=== PATIENT | male | born 1960 | race Caucasian/White ===

== ENCOUNTER 2017-08-10 09:07 | Day surgery (SDC) | payer OTHER ==
[2017-08-10] MEDS ORDERED: PROPOFOL 20 ML ONE ×3 (10:03)
[2017-08-10 10:08] VITALS: BMI 31.8
[2017-08-10 11:12] VITALS: PULSE 61
[2017-08-10 15:30] VITALS: BP 117/71; TEMP 97.8
== END 2017-08-10 12:05 | disposition home or self-care (01) ==
LOC: JASU-ENDO 09:07
PROVIDERS: ATTEND Internal Medicine Gastroenterology
PROC: 0DJD8ZZ Inspection of Lower Intestinal Tract, Via Natural or Artificial Opening Endoscopic (ICD-10-PCS; principal; 2017-08-10 09:45)
DX: Z12.11 Encounter for screening for malignant neoplasm of colon (principal); K64.8 Other hemorrhoids

== ENCOUNTER 2017-08-17 08:41 | Day surgery (SDC) | payer OTHER ==
[2017-08-17 09:09] VITALS: BMI 31.8
[2017-08-17] MEDS ORDERED: LIDOCAINE HCL/PF 2% SDV 5ML VIAL ONE (09:35)
[2017-08-17] MEDS ORDERED: PROPOFOL 20 ML ONE (09:35)
[2017-08-17 10:06] VITALS: TEMP 98
[2017-08-17 10:56] VITALS: BP 112/77; PULSE 66
--- NOTE | 2017-08-19 09:31 | PATH ---
Surgical Pathology Report Patient Name: CHET AGUILERA [facility]. Rec. #: [id number] /Age/Gender: 1960 (Age: 57) / M Account: [id number] Location: [facility]-ENDOSCOPY Taken: 08/17/2017 Received: 08/17/2017 Reported: 08/19/2017 Physicians: Darek Scott D.O. Specimen(s) Received A: BX CARDIA ULCER B: BX ANGULARIS BODY C: BX ESOPHAGUS POLYP Clinical History Family history of digestive neoplasm Postoperative diagnosis: Gastric ulcer polyp, esophageal polyps Final Diagnosis A. CARDIAL ULCER, BIOPSY: GASTRIC MUCOSA WITH ULCERATION, FIBRINOUS AND ACUTE INFLAMMATORY EXUDATE. SEPARATE FRAGMENTS OF GASTRIC MUCOSA WITH CHRONIC GASTRITIS. IMMUNOSTAIN IS NEGATIVE FOR H. PYLORI ORGANISMS. B. GASTRIC ANGULARIS BODY, BIOPSY: GASTRIC MUCOSA WITH NO DIAGNOSTIC ABNORMALITIES. IMMUNOSTAIN IS NEGATIVE FOR H. PYLORI ORGANISMS. C. ESOPHAGUS POLYP, BIOPSY: ESOPHAGEAL (SQUAMOUS) MUCOSA SHOWING EPITHELIAL HYPERPLASIA WITH ABUNDANT INTRACELLULAR GLYCOGEN (CLEARED CYTOPLASM), CONSISTENT WITH GLYCOGENIC ACANTHOSIS. Electronically Signed Rosenda Catalan M.D. Gross Description A. Received in formalin, labeled "biopsy cardia ulcer" are 4 alegria, irregular portions of soft tissue ranging from 0.2-0.3 cm. in greatest dimension. The specimens are submitted in toto in one cassette. B. Received in formalin, labeled "biopsy angularis/body" are 5 alegria, irregular portions of soft tissue ranging from 0.2-0.4 cm. in greatest dimension. The specimens are submitted in toto in one cassette. C. Received in formalin, labeled "biopsy esophageal polyp" are 2 alegria, irregular portions of soft tissue measuring 0.1 and 0.2 cm. in greatest dimension. The specimens are submitted in toto in one cassette. /08/17/2017 saudi08/17/2017
== END 2017-08-17 11:10 | disposition home or self-care (01) ==
LOC: JASU-ENDO 08:41
PROVIDERS: ATTEND Internal Medicine Gastroenterology
PROC: 0DB68ZX Excision of Stomach, Via Natural or Artificial Opening Endoscopic, Diagnostic (ICD-10-PCS; 2017-08-17)
PROC: 0DB18ZX Excision of Upper Esophagus, Via Natural or Artificial Opening Endoscopic, Diagnostic (ICD-10-PCS; principal; 2017-08-17 09:45)
DX: Z80.0 Family history of malignant neoplasm of digestive organs (principal); K25.9 Gastric ulcer, unspecified as acute or chronic, without hemorrhage or perforation
CPT/HCPCS: 88305-TC; 88342-TC

== ENCOUNTER 2017-09-17 07:47 | Observation (INO) | payer OTHER ==
[2017-09-17 08:11] VITALS: BMI 31.4
--- NOTE | 2017-09-17 08:15 | PDOC ---
History of Present Illness - General Chief Complaint: Edema Stated Complaint: RT ARM SWELLING Time Seen by Provider: 09/17/17 08:14 - History of Present Illness Initial Comments: 09/17/17 08:52 The patient is a 57 year old male with no significant PMH who presents for evaluation of right elbow swelling and pain. The patient reports that he noted right elbow swelling 2 days ago and over the past 24 hours has been experiencing increasingly worsening right elbow pain with limited ROM prompting his presentation to the ED for evaluation. He otherwise denies fevers, chills, SOB, chest pain, nausea, vomiting, abdominal pain, numbness, tingling, weakness , or changes with urination or bowel movements. Past History - Past Medical History Allergies/Adverse Reactions: Allergies Allergy/AdvReac Type Severity Reaction Status Date / Time peanut [Peanut] Allergy Verified 09/17/17 08:02 Home Medications: Ambulatory Orders Pantoprazole Sodium [Protonix -] 40 mg PO DAILY #30 tablet.ec 08/17/17 Anemia: No Asthma: No Cancer: No Cardiac Disorders: No CVA: No COPD: No CHF: No Dementia: No Diabetes: No GI Disorders: Yes (DIVERTICULOSIS) Disorders: No HTN: No Hypercholesterolemia: No Liver Disease: No Seizures: No Thyroid Disease: No - Immunization History Immunization Up to Date: Yes - Suicide/Smoking/Psychosocial Hx Smoking History: Never smoked Hx Alcohol Use: No Drug/Substance Use Hx: No Substance Use Type: None Hx Substance Use Treatment: No Review of Systems - Review of Systems Comments:: 09/17/17 08:54 Constitutional: No fevers, chills, fatigue, malaise HEENT: No Rhinorrhea, nasal congestion, visual changes Cardiovascular: No chest pain, syncope, palpitations, lightheadedness Respiratory: No Cough, SOB, Hemoptysis, Gastrointestinal: No Abdominal pain, Nausea, Vomiting, Constipation, Diarrhea, Melena Genitourinary: No Dysuria, Frequency, Urgency, Hesitancy, Hematuria, Flank pain Musculoskeletal: Right elbow pain. No Myalgia, arthralgia Skin: No rashes, itching, bruising, pallor Neurologic: No Headache, Dizziness, Numbness, Weakness, or Tingling Psychiatric: No Hallucinations. No SI or HI *Physical Exam - Vital Signs Last Vital Signs Temp Pulse Resp BP Pulse Ox 98.1 F 78 18 133/82 98 09/17/17 08:02 09/17/17 08:02 09/17/17 08:02 09/17/17 08:02 09/17/17 08:02 - Physical Exam Comments: 09/17/17 08:55 General Appearance: Nourished. No Apparent Distress HEENT: EOMI, GI. No Pharyngeal Erythema, Tonsillar Exudate, Tonsillar Erythema Neck: No Cervical Lymphadenopathy Respiratory/Chest: Lungs Clear, Normal Breath Sounds. No Crackles, Rales, Rhonchi, Wheezing Cardiovascular: Regular Rhythm, Regular Rate. No Murmur, Gallops, Rubs Gastrointestinal/Abdominal: Normal Bowel Sounds, Soft. No Guarding, Rebound, Tenderness Musculoskeletal: No CVA Tenderness Extremity: Mild erythema and swelling to the right elbow with limited ROM due to pain and warmth noted on exam. Normal Capillary Refill Integumentary: Normal Color, Dry, Warm Neurologic: Fully Oriented, Alert, Normal Mood/Affect, Normal Response, ED Treatment Course - LABORATORY CBC & Chemistry Diagram: 09/17/17 08:55 09/17/17 08:55 Medical Decision Making - Medical Decision Making 09/17/17 08:56 The patient is a 57 year old male with no significant PMH who presents for evaluation of right elbow swelling and pain. Differential includes but is not limited to: Septic Arthritis, Gout, Fracture, infectious, metabolic derangement. Given the patient's history and physical exam, we will obtain a cbc, cmp, esr, crp, uric acid, plain films, and ultrasound of the joint to evaluate further for possible etiologies. We will continue to monitor and reassess in the meantime. 09/17/17 11:39 CBC,cmp, uric acid are unremarkable. CRP is mildly elevated to 1.9. Plain films are unremarkable as read by our radiologist. US is unremarkable as well. We discussed the case with Dr. Victor who will come evaluate the patient given the concern for a septic arthritis and he requests that we begin antibiotic treatment in the meantime as he believes that patient's symptoms are likely due to a cellulitis. The patient will require admission for further management. 09/17/17 11:46 We discussed the case with the hospitalist team who accepted the patient for admission. *DC/Admit/Observation/Transfer Diagnosis at time of Disposition: Cellulitis Qualifiers: Site of cellulitis: unspecified site Qualified Code(s): L03.90 - Cellulitis, unspecified Septic arthritis Qualifiers: Septic arthritis location: unspecified location Septic arthritis organism: due to unspecified organism Qualified Code(s): M00.9 - Pyogenic arthritis, unspecified - Discharge Dispostion Condition at time of disposition: Stable Decision to Admit order: Yes - Referrals Referrals: Terry Livingston MD [Primary Care Provider] - - Patient Instructions - Post Discharge Activity
--- NOTE | 2017-09-17 08:27 | PDOC ---
Attending Attestation - HPI HPI: 09/17/17 09:09 The patient is a 57 year old male with no significant past medical history who presents to the emergency department for evaluation of right elbow pain. The patient reports moderate right elbow pain with swelling and redness since yesterday evening. He reports waking up with significantly limited range of motion with his right elbow today which prompted him to visit the emergency department for evaluation. The patient notes swelling and tightness occurred Wednesday after receiving a cut on his right upper arm from doing garden work on Wednesday. The patient denies history of gout, chest pain, shortness of breath, numbness/ tingling in extremities, headache, fevers, chills, nausea, vomiting, . Denies diarrhea, constipation, dysuria, frequency, urgency, and hematuria. Allergies: Peanut. Social history: No reported cigarette, alcohol, or drug use. PCP: Dr. Livingston ([phone]) <Callie Tidwell - Last Filed: 09/17/17 09:08> - Resident Resident Name: Anjel Adames - ED Attending Attestation I have performed the following: I have examined & evaluated the patient, The case was reviewed & discussed with the resident, I agree w/resident's findings & plan, Exceptions are as noted - Physicial Exam PE: GENERAL: Awake, alert, and fully oriented, in no acute distress HEAD: No signs of trauma EYES: PERRLA, EOMI, sclera anicteric, conjunctiva clear ENT: Auricles normal inspection, hearing grossly normal, nares patent, oropharynx clear without exudates. Moist mucosa NECK: Normal ROM, supple, no lymphadenopathy, JVD, or masses LUNGS: Breath sounds equal, clear to auscultation bilaterally. No wheezes, and no crackles HEART: Regular rate and rhythm, normal S1 and S2, no murmurs, rubs or gallops ABDOMEN: Soft, nontender, normoactive bowel sounds. No guarding, no rebound. No masses EXTREMITIES: R elbow with dec ROM due to pain. +Swelling and erythema overlying the elbow joint, dorsal surface. No induration, fluctuance. +Tenderness to the dorsal surface of elbow joint. Distal N/V intact. Remainder of extremities with normal range of motion, no edema. No clubbing or cyanosis. No cords, erythema, or tenderness NEUROLOGICAL: Cranial nerves II through XII grossly intact. Normal speech, normal gait. Motor and sensation intact. SKIN: Warm, Dry, normal turgor, no rashes or lesions noted. - Medical Decision Making 09/17/17 09:09 Pt with R elbow swelling. DDx includes septic joint, cellulitis, gout, bursitis. Will obtain labs including ESR/CRP, BCx. Sono, XR. Ortho consult. <Joana Ramirez - Last Filed: 09/17/17 09:12> Attestations - Attestations Documentation prepared by Callie Tidwell, acting as medical biller coder for Joana Ramirez MD. <Callie Tidwell - Last Filed: 09/17/17 09:08>
[2017-09-17] MEDS ORDERED: DIPHTH,PERTUSS(ACELL),TET 0.5 ML DISP.SYRIN IM ONE (08:47)
[2017-09-17] MEDS ORDERED: ACETAMINOPHEN 1000 MG/100 ML VIAL (NON FORMULARY) IVPB ONE (09:00)
[2017-09-17 09:14] LABS: BASO % 0.5 % (0-2.0); EOS % 1.2 % (0-4.5); HEMATOCRIT 42.8 % (35.4-49); HEMOGLOBIN 14.3 GM/dL (11.7-16.9); LYMPH % 24.7 % (8-40); MCH 27.1 pg (25.7-33.7); MCHC 33.3 g/dl (32.0-35.9); MEAN CELL VOLUME 81.2 fl (80-96); MONO % 8.5 % (3.8-10.2); NEUT % 65.1 % (42.8-82.8); PLATELET COUNT 226 K/MM3 (134-434); RBC 5.27 M/mm3 (4.00-5.60); RDW 13.8 % (11.9-15.9); WHITE BLOOD COUNT 7.9 K/mm3 (4.0-10.0)
[2017-09-17] MEDS ORDERED: ACETAMINOPHEN INJECTION 100 ML IVPB ONE (09:16)
[2017-09-17 09:34] LABS: URIC ACID 4.6 mg/dL (2.6-7.2)
[2017-09-17 09:35] LABS: ALBUMIN 3.6 g/dl (3.4-5.0); ANION GAP 6 (8-16); BLOOD UREA NITROGEN 13 mg/dL (7-18); CALCIUM 8.8 mg/dL (8.5-10.1); CHLORIDE 106 mmol/L (98-107); CO2 29 mmol/L (21-32); CREATININE 1.1 mg/dL (0.7-1.3); GLUCOSE,RANDOM 88 mg/dL (74-106); POTASSIUM 3.9 mmol/L (3.5-5.1); SGOT/AST 23 U/L (15-37); SGPT/ALT 34 U/L (12-78); SODIUM 141 mmol/L (136-145)
[2017-09-17 09:36] LABS: ALK PHOS 48 U/L (45-117); BILIRUBIN,TOTAL 1.5 mg/dL (0.2-1.0); TOT PROT 7.2 g/dl (6.4-8.2)
[2017-09-17] MEDS ORDERED: CEFTRIAXONE 1 GM in DEXTROSE 5%-WATER - 100 ML IVPB ONE (11:31)
[2017-09-17] MEDS ORDERED: VANCOMYCIN 1,250 MG in DEXTROSE 5%-WATER - 250 ML IVPB ONE (11:31)
[2017-09-17] MEDS ORDERED: CEFTRIAXONE 1 GM/50 ML BAG ONE (12:01)
--- NOTE | 2017-09-17 13:15 | HP ---
CHIEF COMPLAINT: R elbow pain PCP:Chrissy HISTORY OF PRESENT ILLNESS: 57yo M with no PMH presented to the ER with R elbow pain and swelling that started on Wednesday. stated he was doing yard work the day before and thinks he scratched his arm on the ladder. on wednesday noted he was having some pain in the elbow and then difficulty bending it due to the pain. noted at bedtime some redness. pain has improved since arrival to the ER. no previous episodes in the past. was recently started on protonix for gastric ulcer. denies CP, SOB , fever, chills, N/V/C/D ER course was notable for: (1)elbow XR no joint effusion (2)vascular study no RUE DVT (3) Recent Travel:none PAST MEDICAL HISTORY: nonbleeding gastric ulcer PAST SURGICAL HISTORY: none Social History: Smoking:denies Alcohol:denies Drugs: denies Family History:father: gastric cancer Allergies peanut [Peanut] Allergy (Verified 09/17/17 08:02) HOME MEDICATIONS: Home Medications Medication Instructions Recorded Pantoprazole Sodium [Protonix -] 40 mg PO DAILY #30 tablet.ec 08/17/17 REVIEW OF SYSTEMS CONSTITUTIONAL: Absent: fever, chills, diaphoresis, generalized weakness, malaise, loss of appetite, weight change HEENT: Absent: rhinorrhea, nasal congestion, throat pain, throat swelling, difficulty swallowing, mouth swelling, ear pain, eye pain, visual changes CARDIOVASCULAR: Absent: chest pain, syncope, palpitations, irregular heart rate, lightheadedness , peripheral edema RESPIRATORY: Absent: cough, shortness of breath, dyspnea with exertion, orthopnea, wheezing, stridor, hemoptysis GASTROINTESTINAL: Absent: abdominal pain, abdominal distension, nausea, vomiting, diarrhea, constipation, melena, hematochezia GENITOURINARY: Absent: dysuria, frequency, urgency, hesitancy, hematuria, flank pain, genital pain MUSCULOSKELETAL: arthralgia, joint swelling, Absent: myalgia, back pain, neck pain SKIN: Absent: rash, itching, pallor HEMATOLOGIC/IMMUNOLOGIC: Absent: easy bleeding, easy bruising, lymphadenopathy, frequent infections ENDOCRINE: Absent: unexplained weight gain, unexplained weight loss, heat intolerance, cold intolerance NEUROLOGIC: Absent: headache, focal weakness or paresthesias, dizziness, unsteady gait, seizure, mental status changes, bladder or bowel incontinence PSYCHIATRIC: Absent: anxiety, depression, suicidal or homicidal ideation, hallucinations. PHYSICAL EXAMINATION Vital Signs - 24 hr 09/17/17 08:02 Temperature 98.1 F Pulse Rate 78 Respiratory 18 Rate Blood Pressure 133/82 O2 Sat by Pulse 98 Oximetry (%) GENERAL: Awake, alert, and fully oriented, in no acute distress. HEAD: Normal with no signs of trauma. EYES: Pupils equal, round and reactive to light, extraocular movements intact, sclera anicteric, conjunctiva clear. No lid lag. EARS, NOSE, THROAT: Ears normal, nares patent, oropharynx clear without exudates. Moist mucous membranes. NECK: Normal range of motion, supple without lymphadenopathy, JVD, or masses. LUNGS: Breath sounds equal, clear to auscultation bilaterally. No wheezes, and no crackles. No accessory muscle use. HEART: Regular rate and rhythm, normal S1 and S2 without murmur, rub or gallop. ABDOMEN: Soft, nontender, not distended, normoactive bowel sounds, no guarding, no rebound, no masses. No hepatomegaly or splenomegaly. MUSCULOSKELETAL: restricted ROM of R elbow <15 degrees. erythema on lateral epicondyle. no joint swelling. pulse intact. Abrasion noted on RUE with no active oozing with some surrounding erythema. tenderness noted at lateral epicondyle. full ROM at the wrist and shoulder. pulse 2+. No CVA tenderness. UPPER EXTREMITIES: 2+ pulses, warm, well-perfused. No cyanosis. No clubbing. No peripheral edema. LOWER EXTREMITIES: 2+ pulses, warm, well-perfused. No calf tenderness. No peripheral edema. NEUROLOGICAL: Cranial nerves II-XII intact. Normal speech. Normal gait. PSYCHIATRIC: Cooperative. Good eye contact. Appropriate mood and affect. SKIN: Warm, dry, normal turgor, no rashes or lesions noted, normal capillary refill. Laboratory Results - last 24 hr 09/17/17 09/17/17 09/17/17 08:55 08:55 08:55 WBC 7.9 D RBC 5.27 Hgb 14.3 Hct 42.8 MCV 81.2 MCH 27.1 MCHC 33.3 RDW 13.8 Plt Count 226 MPV 8.0 Absolute Neuts (auto) 5.2 Neutrophils % 65.1 Lymphocytes % 24.7 Monocytes % 8.5 Eosinophils % 1.2 Basophils % 0.5 Nucleated RBC % 0 ESR Sodium 141 Potassium 3.9 Chloride 106 Carbon Dioxide 29 Anion Gap 6 L BUN 13 D Creatinine 1.1 Creat Clearance w eGFR > 60 Random Glucose 88 Uric Acid 4.6 Calcium 8.8 Total Bilirubin 1.5 H D AST 23 ALT 34 Alkaline Phosphatase 48 C-Reactive Protein 1.9 H Total Protein 7.2 Albumin 3.6 09/17/17 08:55 WBC RBC Hgb Hct MCV MCH MCHC RDW Plt Count MPV Absolute Neuts (auto) Neutrophils % Lymphocytes % Monocytes % Eosinophils % Basophils % Nucleated RBC % ESR 8 Sodium Potassium Chloride Carbon Dioxide Anion Gap BUN Creatinine Creat Clearance w eGFR Random Glucose Uric Acid Calcium Total Bilirubin AST ALT Alkaline Phosphatase C-Reactive Protein Total Protein Albumin ASSESSMENT/PLAN: 57yo M with PMH gastric ulcer presenting to the ER with R elbow pain and swelling 1. R elbow cellulitis- concern for septic arthritis but low given no effusion seen on XR. elevated CRP. awaiting Ortho evaluation. as per ER Resident ortho will come tonight and evaluate for arthrocentesis. will hold abx until evaluated as pt does not appear septic. will start vanco until results of joint aspiration is resulted. send for cx. f/u Bcx. continue tylenol prn pain 2. Gastric ulcer- bx negative per pt. cont protonix 3. DVT ppx- EAM Hospitalist Screening - Colonoscopy Questionnaire Colonoscopy Questionnaire: Colonoscopy Questionnaire
[2017-09-17] MEDS ORDERED: ACETAMINOPHEN 325 MG TABLET (FP) PO PRN (14:23)
--- NOTE | 2017-09-17 17:34 | CON.ORTH ---
Consult Consult Specialty:: orthopedics Referred by:: ER Reason for Consultation:: right elbow pain and swelling - History of Present Illness Chief Complaint: right elbow pain and swelling - History Source History Provided By: Patient, Medical Record Limitations to Obtaining History: No Limitations - Alcohol/Substance Use Hx Alcohol Use: No - Smoking History Smoking history: Never smoked Home Medications - Allergies Allergies/Adverse Reactions: Allergies Allergy/AdvReac Type Severity Reaction Status Date / Time peanut [Peanut] Allergy Verified 09/17/17 08:02 - Home Medications Home Medications: Ambulatory Orders Pantoprazole Sodium [Protonix -] 40 mg PO DAILY #30 tablet.ec 08/17/17 Review of Systems - Review of Systems Constitutional: reports: No Symptoms Eyes: reports: No Symptoms HENT: reports: No Symptoms Neck: reports: No Symptoms Cardiovascular: reports: No Symptoms Respiratory: reports: No Symptoms Gastrointestinal: reports: No Symptoms Genitourinary: reports: No Symptoms Physical Exam for Ortho Vital Signs: Vital Signs Temperature 98.3 F 09/17/17 14:00 Pulse Rate 65 09/17/17 14:00 Respiratory Rate 18 09/17/17 14:04 Blood Pressure 115/75 09/17/17 14:00 O2 Sat by Pulse Oximetry (%) 99 09/17/17 14:04 Constitutional: Yes: Well Nourished, No Distress, Calm Extremities: Yes: Other (RUE - there is mild erythema posteriorly over the olecranon. Mild tenderness and swelling. No fluctuance or palpable effusion. Mild limitation to ROM. Abrasion proximal to area of erythema. NVID) Labs: CBC, BMP 09/17/17 08:55 09/17/17 08:55 Imaging - Results X-ray: Report Reviewed, Image Reviewed Ultrasound: Report Reviewed (No fracture. No effusion. No soft tissue collection.) Problem List - Problems (1) Cellulitis of right elbow Assessment/Plan: -reviewed with patient that there is no current evidence of effusion or bursal collection or abscess -recommend continue treatment for cellulitis -can switch to PO if good clinical response -no need for aspiration or other intervention -please reconsult if condition worsens Code(s): L03.113 - CELLULITIS OF RIGHT UPPER LIMB
[2017-09-18 09:14] LABS: BASO % 0.9 % (0-2.0); EOS % 1.6 % (0-4.5); HEMATOCRIT 43.2 % (35.4-49); HEMOGLOBIN 14.4 GM/dL (11.7-16.9); LYMPH % 29.3 % (8-40); MCH 27.1 pg (25.7-33.7); MCHC 33.3 g/dl (32.0-35.9); MEAN CELL VOLUME 81.5 fl (80-96); MEAN PLT VOLUME 8.2 fl (7.5-11.1); MONO % 5.6 % (3.8-10.2); NEUT % 62.6 % (42.8-82.8); PLATELET COUNT 232 K/MM3 (134-434); RBC 5.29 M/mm3 (4.00-5.60); RDW 13.7 % (11.9-15.9); WHITE BLOOD COUNT 7.9 K/mm3 (4.0-10.0)
[2017-09-18] MEDS: PANTOPRAZOLE 40 MG TABLET (FP) PO SCH (09:15)
[2017-09-18 09:56] LABS: CHLORIDE 102 mmol/L (98-107); POTASSIUM 3.6 mmol/L (3.5-5.1); SODIUM 137 mmol/L (136-145)
[2017-09-18 10:12] LABS: ANION GAP 10 (8-16); BLOOD UREA NITROGEN 15 mg/dL (7-18); CO2 25 mmol/L (21-32); CREATININE 1.2 mg/dL (0.7-1.3); GLUCOSE,RANDOM 139 mg/dL (74-106)
--- NOTE | 2017-09-18 12:04 | PN ---
Physical Exam: SUBJECTIVE: Patient seen and examined at bedside. OBJECTIVE: Vital Signs Period Temp Pulse Resp BP Sys/Lal Pulse Ox Last 24 Hr 97.8 F-99 F 60-70 18-20 112-128/66-79 99-100 General: A&Ox3, in no acute distress Pulm: CTA CV: S1, S2, rrr RUE: abrasion right upper arm; right elbow mildly swollen, mildly edematous, ROM limited secondary to swelling; no fluctance Laboratory Results - last 24 hr 09/18/17 09/18/17 08:29 08:29 WBC 7.9 RBC 5.29 Hgb 14.4 Hct 43.2 MCV 81.5 MCH 27.1 MCHC 33.3 RDW 13.7 Plt Count 232 MPV 8.2 Absolute Neuts (auto) 5.0 Neutrophils % 62.6 Lymphocytes % 29.3 Monocytes % 5.6 Eosinophils % 1.6 Basophils % 0.9 Nucleated RBC % 0 Sodium 137 Potassium 3.6 Chloride 102 Carbon Dioxide 25 Anion Gap 10 BUN 15 Creatinine 1.2 Random Glucose 139 H D Calcium 9.0 Active Medications Generic Name Dose Route Start Last Admin Trade Name Freq PRN Reason Stop Dose Admin Acetaminophen 650 mg 09/17/17 14:23 Tylenol - PO Q4H PRN PAIN OR FEVER Pantoprazole Sodium 40 mg 09/18/17 10:00 09/18/17 09:15 Protonix - PO 40 mg DAILY WALI Administration ASSESSMENT/PLAN RUE cellulitis --swelling, mild erythema, restricted ROM secondary to swelling; abrasion right upper arm (scraped by ladder) --vanco x 1 --start doxy --ID consult Visit type - Emergency Visit Emergency Visit: Yes ED Registration Date: 09/17/17 Care time: The patient presented to the Emergency Department on the above date and was hospitalized for further evaluation of their emergent condition. - New Patient This patient is new to me today: Yes Date on this admission: 09/19/17 - Critical Care Critical Care patient: No
[2017-09-18] MEDS ORDERED: DOXYCYCLINE HYCLATE 100 MG CAPSULE PO SCH (13:00)
[2017-09-18] MEDS: DOXYCYCLINE HYCLATE 100 MG CAPSULE PO SCH (21:50)
[2017-09-19 08:54] LABS: BASO % 1.1 % (0-2.0); EOS % 2.3 % (0-4.5); HEMATOCRIT 46.9 % (35.4-49); HEMOGLOBIN 15.4 GM/dL (11.7-16.9); LYMPH % 31.5 % (8-40); MCH 26.8 pg (25.7-33.7); MCHC 32.9 g/dl (32.0-35.9); MEAN CELL VOLUME 81.5 fl (80-96); MEAN PLT VOLUME 8.2 fl (7.5-11.1); MONO % 8.4 % (3.8-10.2); NEUT % 56.7 % (42.8-82.8); PLATELET COUNT 238 K/MM3 (134-434); RBC 5.75 M/mm3 (4.00-5.60); RDW 13.8 % (11.9-15.9); WHITE BLOOD COUNT 8.1 K/mm3 (4.0-10.0)
[2017-09-19] MEDS: DOXYCYCLINE HYCLATE 100 MG CAPSULE PO SCH (09:13)
[2017-09-19] MEDS: PANTOPRAZOLE 40 MG TABLET (FP) PO SCH (09:13)
[2017-09-19 09:29] LABS: ALBUMIN 3.8 g/dl (3.4-5.0); ALK PHOS 54 U/L (45-117); ANION GAP 5 (8-16); BLOOD UREA NITROGEN 17 mg/dL (7-18); CALCIUM 9.4 mg/dL (8.5-10.1); CHLORIDE 104 mmol/L (98-107); CO2 29 mmol/L (21-32); CREATININE 1.1 mg/dL (0.7-1.3); GLUCOSE,RANDOM 86 mg/dL (74-106); MAGNESIUM 2.3 mg/dL (1.8-2.4); POTASSIUM 4.4 mmol/L (3.5-5.1); SGOT/AST 18 U/L (15-37); SGPT/ALT 32 U/L (12-78); SODIUM 138 mmol/L (136-145); TOT PROT 7.8 g/dl (6.4-8.2)
--- NOTE | 2017-09-19 10:20 | PN ---
Progress Note (short form) - Note Progress Note: ID Note dictated and discussed Keflex 500mg qid 7 days Problem List - Problems (1) Cellulitis of right elbow Code(s): L03.113 - CELLULITIS OF RIGHT UPPER LIMB
[2017-09-19 10:59] VITALS: BP 129/80; PULSE 60; TEMP 98
--- NOTE | 2017-09-19 11:10 | DS ---
Physical Exam: SUBJECTIVE: Patient seen and examined OBJECTIVE: Vital Signs Period Temp Pulse Resp BP Sys/Lal Pulse Ox Last 24 Hr 98.0 F-98.9 F 58-76 18-20 115-129/68-80 100-100 PHYSICAL EXAM General: A&Ox3, in no acute distress Pulm: CTA CV: S1, S2, rrr RUE: abrasion right upper arm; right elbow mildly swollen, mildly edematous, ROM limited secondary to swelling; no fluctance RUE cellulitis --swelling, mild erythema, restricted ROM secondary to swelling; abrasion right upper arm (scraped by ladder) --vanco x 1 --start doxy --ID consult LABS Laboratory Results - last 24 hr 09/19/17 09/19/17 07:45 07:45 WBC 8.1 RBC 5.75 H Hgb 15.4 Hct 46.9 MCV 81.5 MCH 26.8 MCHC 32.9 RDW 13.8 Plt Count 238 MPV 8.2 Absolute Neuts (auto) 4.6 Neutrophils % 56.7 Lymphocytes % 31.5 Monocytes % 8.4 Eosinophils % 2.3 Basophils % 1.1 Nucleated RBC % 0 Sodium 138 Potassium 4.4 D Chloride 104 Carbon Dioxide 29 Anion Gap 5 L BUN 17 Creatinine 1.1 Creat Clearance w eGFR > 60 Random Glucose 86 D Calcium 9.4 Magnesium 2.3 Total Bilirubin 1.0 D AST 18 D ALT 32 Alkaline Phosphatase 54 Total Protein 7.8 Albumin 3.8 HOSPITAL COURSE: Date of Admission:09/17/17 Date of Discharge: 09/19/17 57yo M with no PMH presented to the ER with R elbow pain and swelling that started on Wednesday. stated he was doing yard work the day before and thinks he scratched his arm on the ladder. on wednesday noted he was having some pain in the elbow and then difficulty bending it due to the pain. noted at bedtime some redness. pain has improved since arrival to the ER. no previous episodes in the past. was recently started on protonix for gastric ulcer. denies CP, SOB , fever, chills, N/V/C/D ER course was notable for: (1)elbow XR no joint effusion (2)vascular study no RUE DVT RUE cellulitis --swelling, mild erythema, restricted ROM secondary to swelling; abrasion right upper arm (scraped by ladder) --vanco x 1 --start doxy --discharge on Keflex 500mg QID x 7 days Minutes to complete discharge: 35 Discharge Summary Reason For Visit: CELLULITIS, SEPTIC ARTHRITIS Current Active Problems Cellulitis (Acute) Cellulitis of right elbow (Acute) Septic arthritis (Acute) Condition: Critical - Instructions Diet, Activity, Other Instructions: A prescription has been sent to your pharmacy for Keflex which is an antibiotic. Take this medication as directed and be sure to finish all the medication. Return to the emergency department for any new or worsening symptoms. Referrals: Terry Livingston MD [Primary Care Provider] - Disposition: HOME - Home Medications Comprehensive Discharge Medication List: Ambulatory Orders Pantoprazole Sodium [Protonix -] 40 mg PO DAILY #30 tablet.ec 08/17/17 Cephalexin [Keflex] 500 mg PO QID #28 capsule 09/19/17 This patient is new to me today: No Emergency Visit: Yes ED Registration Date: 09/17/17 Care time: The patient presented to the Emergency Department on the above date and was hospitalized for further evaluation of their emergent condition. Critical Care patient: No - Discharge Referral Referred to [facility] Med P.C.: No
--- NOTE | 2017-09-19 12:27 | CONS ---
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 Before this he notes carrying a heavy ladder which created an abrasion on the lateral aspect of the right upper extremity above the elbow. Subsequently, he developed right elbow pain and swelling in the absence of any fever, chills, or other systemic complaints. He has no history of other trauma, insect bites, and has been seen in consultation now by Orthopedics and thought to have a skin and soft tissue infection and found no evidence of septic arthritis. He has been afebrile here and treated with antibiotic vancomycin. When I came to see him he had been placed on doxycycline by nurse practitioner Tonio. PAST MEDICAL HISTORY: He has no other past medical history. ALLERGIES: He is allergic to PEANUTS. SOCIAL HISTORY: He denies smoking alcohol and substance abuse and says he has been HIV tested negative. FAMILY HISTORY: Noncontributory. REVIEW OF SYSTEMS: All review of systems obtained are negative. PHYSICAL EXAMINATION: General: He was an alert male in no acute distress. Vital Signs: Temperature 98.3, pulse 58, blood pressure 115/68, and respirations 20. Neck: Supple. Lungs: Clear. Heart: S1, S2 regular rhythm no murmur. Abdomen: Soft, nontender without organomegaly. Extremities: Reveals mild right elbow swelling with minimal erythema, full range of motion in the elbow. No abscess or soft tissue effusion evident. Extensive abrasions noted on the right upper extremity which are dry and appear non-infective. The white count is 8.1, hemoglobin 15.4, ESR of 8. Liver enzymes within normal limits. CRP of 1.8. Uric acid 4.6. ASSESSMENT: Skin and soft tissue infection with cellulitis of the right elbow probably related to proceeding trauma history related to carrying a ladder and creating abrasions to the right upper extremity clinically improved. No evidence of purulence, fever or sepsis. Can be discharged as discussed on Keflex 500 mg p.o. q.i.d. for 7 days. No further recommendations. CYNTHIA LEZAMA M.D. [id number]
== END 2017-09-19 12:42 | disposition home or self-care (01) ==
LOC: JER 07:47 → JERBED 11:47 → J6S 13:15
PROVIDERS: ADMIT Internal Medicine; ATTEND Nurse Practitioner Acute Care
PROC: 3E03329 Introduction of Other Anti-infective into Peripheral Vein, Percutaneous Approach (ICD-10-PCS; principal; 2017-09-17)
PROC: 3E033NZ Introduction of Analgesics, Hypnotics, Sedatives into Peripheral Vein, Percutaneous Approach (ICD-10-PCS; 2017-09-17)
PROC: 3E0234Z Introduction of Serum, Toxoid and Vaccine into Muscle, Percutaneous Approach (ICD-10-PCS; 2017-09-17)
DX: L03.113 Cellulitis of right upper limb (principal); M00.9 Pyogenic arthritis, unspecified; Z91.010 Allergy to peanuts; Z87.11 Personal history of peptic ulcer disease; R79.82 Elevated C-reactive protein (CRP)
CPT/HCPCS: 36415; 73070-TC-RT-FY; 76882; 80048; 80053; 83735; 84550; 85025; 85651; 86140; 87040; 90471; 90715; 96365; 96366; 96375; 99285-25; G0378; J0131

== ENCOUNTER 2017-10-12 09:38 | Day surgery (SDC) | payer OTHER ==
[2017-10-12] MEDS ORDERED: PROPOFOL 20 ML ONE ×2 (10:12)
[2017-10-12 10:36] VITALS: TEMP 98
[2017-10-12 11:28] VITALS: BP 115/69; PULSE 65
--- NOTE | 2017-10-15 15:02 | PATH ---
Surgical Pathology Report Patient Name: CHET AGUILERA [facility]. Rec. #: [id number] /Age/Gender: 1960 (Age: 57) / M Account: [id number] Location: [facility] Taken: 10/12/2017 Received: 10/12/2017 Reported: 10/15/2017 Physicians: Darek Scott D.O. Specimen(s) Received BX CARDIA Clinical History Followup gastric ulcer Postop diagnosis: Healed gastric ulcer Final Diagnosis CARDIA, BIOPSY: MILD CHRONIC GASTRITIS. IMMUNOSTAIN IS NEGATIVE FOR H. PYLORI ORGANISMS. Electronically Signed Mirela Maldonado M.D. Gross Description Received in formalin, labeled "biopsy cardia" is a alegria, irregular portion of soft tissue measuring 0.4 cm. in greatest dimension. The specimen is submitted in toto in one cassette. /10/12/2017 saudi10/12/2017
== END 2017-10-12 11:35 | disposition home or self-care (01) ==
LOC: JASU-ENDO 09:38
PROVIDERS: ATTEND Internal Medicine Gastroenterology
PROC: 0DB68ZX Excision of Stomach, Via Natural or Artificial Opening Endoscopic, Diagnostic (ICD-10-PCS; principal; 2017-10-12 11:00)
DX: K29.50 Unspecified chronic gastritis without bleeding (principal)
CPT/HCPCS: 88305-TC; 88342-TC

== ENCOUNTER 2022-04-28 04:42 | Day surgery (SDC) | payer OTHER ==
[2022-04-24 13:20] VITALS: BMI 32.1
[2022-04-28 11:09] VITALS: BP 115/81; PULSE 61; RESP 18; TEMP 98
== END 2022-04-28 11:29 | disposition home or self-care (01) ==
LOC: JASU-ENDO 04:42
PROVIDERS: ATTEND Internal Medicine Gastroenterology
PROC: 0DB68ZX Excision of Stomach, Via Natural or Artificial Opening Endoscopic, Diagnostic (ICD-10-PCS; 2022-04-28)
PROC: 0DB28ZX Excision of Middle Esophagus, Via Natural or Artificial Opening Endoscopic, Diagnostic (ICD-10-PCS; 2022-04-28)
PROC: 0DB38ZX Excision of Lower Esophagus, Via Natural or Artificial Opening Endoscopic, Diagnostic (ICD-10-PCS; principal; 2022-04-28 08:30)
DX: K29.50 Unspecified chronic gastritis without bleeding (principal); K21.00 Gastro-esophageal reflux disease with esophagitis, without bleeding
CPT/HCPCS: 88305-TC; 88342-TC